=== PATIENT | male | born 1985 | race Caucasian/White ===

== ENCOUNTER 2022-02-07 13:09 | Outpatient (REF) | payer OTHER, SELFPAY ==
[2022-02-08 09:19] LABS: CT PCR NOT DETECTED (Not Detect.); NG PCR NOT DETECTED (Not Detect.)
== END 2022-02-07 13:10 | disposition home or self-care (01) ==
LOC: HO.LAB 13:09
PROVIDERS: Visit Provider Physician Assistant
DX: Z11.3 Encounter for screening for infections with a predominantly sexual mode of transmission (principal); R30.0 Dysuria
CPT/HCPCS: 87491; 87591